=== PATIENT | female | born 1965 | race Caucasian/White ===

== ENCOUNTER 2022-02-15 22:39 | Emergency (ER) | payer OTHER ==
[~2022-02-15] VITALS: Ht 152.4 cm; Wt 70.3 kg
[2022-02-15] MEDS ORDERED: TRAMADOL HCL 50 MG TAB PO STA (22:43)
[2022-02-15] MEDS ORDERED: HYDROCODONE/APAP 10MG-325MG TAB PO ONE (23:00)
[2022-02-15] MEDS ORDERED: HYDROCODONE/APAP 10MG-325MG TAB ONE (23:02)
[2022-02-15] MEDS ORDERED: Morphine 4mg Syringe 4 MG/ML INJ IM ONE (23:30)
[2022-02-15] MEDS ORDERED: ONDANSETRON ODT4 MG PO (23:41)
[2022-02-15] MEDS ORDERED: ACETAMINOPHEN-1 EAC4 PO (23:41)
[2022-02-15] MEDS ORDERED: BACITRACIN ZINC 0.9GM TP ONE (23:42)
== END 2022-02-16 00:02 | disposition home or self-care (01) ==
LOC: ER 22:45
DX: S52.531A Colles' fracture of right radius, initial encounter for closed fracture (principal); W01.0XXA Fall on same level from slipping, tripping and stumbling without subsequent striking against object, initial encounter; Y93.01 Activity, walking, marching and hiking; Y92.008 Other place in unspecified non-institutional (private) residence as the place of occurrence of the external cause
CPT/HCPCS: 25605; 73090; 99283; J2270